=== PATIENT | female | born 1950 | race Caucasian/White ===

== ENCOUNTER 2020-10-10 13:09 | Outpatient (CLI) | payer OTHER, SELFPAY ==
--- NOTE | ~2020-10-10 | XR_ITS ---
EXAMINATION: XR lg joint inject/asp add DATE: 10/10/2020 14:38 INDICATION: Left hip primary osteoarthritis. TECHNIQUE: A time-out was performed to verify the patient's name, date of , and procedure to b e performed. The procedure including the risks, benefits, and alternatives was discussed with the pat ient. Risks discussed included bleeding and infection. The patient understood the risks and agreed to proceed. The skin overlying the left hip joint was prepped and draped in usual sterile fashion. An esthetic was administered with 1% lidocaine subcutaneously. A 22 G needle was advanced under fluoros copic guidance into the joint. Injection of 1 mL of Omnipaque 240 confirmed intra-articular position of the needle. Subsequently, injectate consisting of 5 mL 1% lidocaine and 2 mL 10 mg/mL Kenalog wa s instilled. The needle was removed and the entry site was cleaned and dressed. There were no immed iate complications. Fluoroscopy exposure time was 0.1 minutes. The total number of images was 2. FINDINGS: Real-time fluoroscopy demonstrates the needle in the left hip joint. IMPRESSION: 1. Fluoroscopy guided left hip joint injection of local anesthetic and steroid. Reviewed, dictated and finalized at location A. SHAPER
--- NOTE | ~2020-10-10 | XR_ITS ---
EXAMINATION: XR lg joint inject/asp w image DATE: 10/10/2020 14:37 INDICATION: Right hip primary osteoarthritis. TECHNIQUE: A time-out was performed to verify the patient's name, date of , and procedure to b e performed. The procedure including the risks, benefits, and alternatives was discussed with the pat ient. Risks discussed included bleeding and infection. The patient understood the risks and agreed to proceed. The skin overlying the right hip joint was prepped and draped in usual sterile fashion. A nesthetic was administered with 1% lidocaine subcutaneously. A 22 G needle was advanced under fluoro scopic guidance into the joint. Injection of 1 mL of Omnipaque 240 confirmed intra-articular positio n of the needle. Subsequently, injectate consisting of 5 mL 1% lidocaine and 2 mL 10 mg/mL Kenalog w as instilled. The needle was removed and the entry site was cleaned and dressed. There were no imme diate complications. Fluoroscopy exposure time was 0.1 minutes. The total number of images was 2. FINDINGS: Real-time fluoroscopy demonstrates the needle in the right hip joint. IMPRESSION: 1. Fluoroscopy guided right hip joint injection of local anesthetic and steroid. Reviewed, dictated and finalized at location A. TECHNICIAN IMPRESSION: 1. Fluoroscopy guided right hip joint injection of local anesthetic and steroid .
== END 2020-10-10 13:10 | disposition home or self-care (01) ==
PROVIDERS: PCP Physician Assistant; Visit Provider Orthopaedic Surgery
DX: M16.0 Bilateral primary osteoarthritis of hip (principal)
CPT/HCPCS: 20610; 77002; J3301; Q9966

== ENCOUNTER 2022-01-01 19:49 | Emergency (ER) | payer OTHER, SELFPAY ==
[2022-01-01 19:56] VITALS: BP 149/80; PULSE 86; RESP 16; TEMP 36.1; O2SAT 100
[2022-01-01 20:54] LABS: Add Urine Microscopic? YES; Appearance Urine Cloudy (Clear); Bacteria Urine Trace /hpf; Bilirubin Urine Negative (Negative); Blood Urine 2+ (Negative); Color Urine Yellow (Yellow); Glucose Urine UA Negative (Negative); Ketones Urine Negative (Negative); Leukocyte Esterase Ur 3+ LEU/UL (Negative); Mucus Urine Rare /lpf; Nitrate Urine Positive (Negative); Protein Urine Negative (Negative); Squamous Epithelial Cell Urine Occasional /hpf (Few); WBC Urine >75 /hpf
[2022-01-01] MEDS: PHENAZOPYRIDINE HCL 100 MG TABLET 200 MG PO (21:19)
[2022-01-01] MEDS: cefTRIAXone 1 GM VIAL IM (21:19)
--- NOTE | 2022-01-01 21:38 | ED.GENADULT ---
HPI - General Adult General Chief complaint: Unspecified Stated complaint: uti symptoms, concerned for infection at surgical Time Seen by Provider: 01/01/22 20:30 Source: patient Mode of arrival: ambulatory Limitations: no limitations History of Present Illness HPI narrative: This is a 71 year old female who presents for evaluation of a UTI. Patient developed dysuria and increased urinary frequency 3 days. She reports lower abdominal pain with urinary. She denies nausea, vomiting, fever, chills or hematuria. She took some left over antibiotics which helped her symptoms. She was unable to get a hold of her PCP so she came to ER for antibiotics. Patient also wants her right hip surgical wound site to be evaluated while she is here getting treatment for UTI. She had right hip replacement performed 1 month ago at [facility]. She noticed that when she turns a certain when she notices a lump just under her incision. She denies any pain, redness, drainage, fever, nausea or vomiting. She is ambulatory and she has been walking without any difficulty. She is due to follow up with her surgeon within the next week. Related Data Home Medications Medication Instructions Recorded Confirmed loratadine 10 mg capsule 10 mg PO DAILY 09/26/20 09/26/20 naproxen 500 mg tablet 500 mg PO BID 09/26/20 09/26/20 Allergies Allergy/AdvReac Type Severity Reaction Status Date / Time ether Allergy Unknown Verified 02/03/19 18:11 Review of Systems Review of Systems: All systems reviewed & are unremarkable except as noted in HPI and below Constitutional: Constitutional: Denies body ache(s), Denies chills and Denies fatigue PMFSH Past Medical History Medical History (Updated 01/02/22 @ 00:00 by Saeed Paris) Arthritis of both hips BMI 34.0-34.9,adult H/O blood clots Osteoporosis Surgical History Surgical History (Updated 01/01/22 @ 21:42 by Louisa Whitt MD) History of bilateral hip replacements History of esophageal surgery 1977 Social History Social History Smoking status: Never smoker Alcohol intake: never 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 HEAD: Normocephalic, atraumatic EYES: PERRLA and EOMI, conjunctiva clear without discharge THROAT:Mucous membranes moist, Oropharynx normal without erythema, exudate, peritonsillar swelling or fluctuance NECK: Supple, without lymphadenopathy or mass RESPIRATORY: No respiratory distress, Airway patent, Respirations non-labored, Clear to auscultation without rales, rhonchi or wheeze HEART: Regular rate and rhythm. No murmur heard. Normal peripheral pulses. ABDOMEN: Soft, nontender, nondistended, normal active bowel sounds. No masses. No rebound or guarding, No organomegaly. EXTREMITIES: No edema, normal strength with full range of motion. SKIN: Warm, dry, normal color without rash; right hip incision- intact, dry, no drainage, no redness, no tenderness; there are small areas with scab but no open areas. NEURO: Alert and oriented x3. CN 2-12 grossly intact. No focal deficits. PSYCH: Normal mood and affect. Course Reevaluation(s) Reevaluation #1: Patient will be treatment for UTI. She is ambulatory , chata abdominal exam. No cva tenderness. Wound looks good. Date: 01/01/22 Time: 21:43 Vital Signs Vital signs: Vital Signs Temperature 97 F L 01/01/22 19:56 Pulse Rate 86 01/01/22 19:56 Respiratory Rate 16 01/01/22 19:56 Blood Pressure 149/80 H 01/01/22 19:56 Pulse Oximetry 100 01/01/22 19:56 Temperature 97 F L 01/01/22 19:56 Pulse Rate 90 01/01/22 22:03 Respiratory Rate 18 01/01/22 22:03 Blood Pressure 149/80 H 01/01/22 19:56 Pulse Oximetry 98 01/01/22 22:03 Medical Decision Making Vital Signs Vital Signs: Vital
[2022-01-01 22:03] VITALS: PULSE 90; RESP 18; O2SAT 98
== END 2022-01-01 22:04 | disposition home or self-care (01) ==
PROVIDERS: Family Medicine; Emergency Provider General Practice; PCP Physician Assistant
DX: N39.0 Urinary tract infection, site not specified (principal); Z48.89 Encounter for other specified surgical aftercare; M19.90 Unspecified osteoarthritis, unspecified site
CPT/HCPCS: 81001; 87086; 87088; 96372; 99283; A9270; J0696

== ENCOUNTER 2022-03-12 18:28 | Emergency (ER) | payer OTHER, SELFPAY ==
[2022-03-12 18:30] VITALS: BP 155/69; PULSE 78; RESP 18; TEMP 36.6; O2SAT 100
--- NOTE | 2022-03-12 18:39 | ED.GENADULT ---
HPI - General Adult General Chief complaint: Unspecified Stated complaint: Multiple Complaints Time Seen by Provider: 03/12/22 18:39 History of Present Illness HPI narrative: Patient is a 71-year-old female here for evaluation of a lesion to her left inner thigh. Patient states that she was out working in the yard 2 days ago and she developed a lesion on her thigh the following day. She states the lesion is pruritic, she has attempted hydrocortisone cream, poured clorox on lesion, and has covered the area with duct tape without relief. Additionally reports swelling to her bilateral ankles for the past 3 days and some bilateral arm soreness. Patient states that 2 days ago was the first time she was out working in the yard a while and she is usually not on her feet all day. Denies changes to her urine, syncope, chest pain, fevers, chills. She did have a mild headache yesterday that resolved after taking aspirin. States that she frequently gets headaches and this was her usual tension headache. No visual changes, neck stiffness, thunderclap onset, confusion or weakness. Related Data Home Medications Medication Instructions Recorded Confirmed loratadine 10 mg capsule 10 mg PO DAILY 09/26/20 09/26/20 naproxen 500 mg tablet 500 mg PO BID 09/26/20 09/26/20 Allergies Allergy/AdvReac Type Severity Reaction Status Date / Time ether Allergy Unknown Verified 02/03/19 18:11 Review of Systems Review of Systems: Gen.: Denies fevers or chills Eyes: Denies eye pain or visual change ENT: Denies congestion Respiratory: Denies shortness of breath or cough CV: Denies chest pain or palpitations GI: Denies abdominal pain nausea, emesis or diarrhea denies burning, urgency, frequency or hematuria Musculoskeletal: Reports arm soreness. Denies back pain or muscle pain Neuro: Reports headache, resolved. 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 1 beat of horizontal nystagmus noted. HEENT: Normocephalic, atraumatic, OMM. RESPIRATORY: No respiratory distress. Clear to auscultation bilaterally with no rhonchi wheezing or rales. CARDIOVASCULAR: Regular rate and rhythm without murmurs rubs or gallops. ABDOMINAL: Soft, nontender, nondistended, no rebound or guarding MUSCULOSKELETAL: Patient has trace nonpitting edema bilaterally. No calf tenderness or tenderness to palpation along deep venous system. NEURO: Cranial nerves II through XII intact. Awake and alert. Following commands, speech normal, no focal deficits SKIN: Patient has a 1 cm circular wheal to her left inner thigh no active drainage or underlying fluctuance or induration. Similar lesion on right upper chest. Numerous varicose varicosities to bilateral lower legs. PSYCHIATRIC: Normal affect/mood Course Vital Signs Vital signs: Vital Signs Temperature 98 F 03/12/22 18:30 Pulse Rate 78 03/12/22 18:30 Respiratory Rate 18 03/12/22 18:30 Blood Pressure 155/69 H 03/12/22 18:30 Pulse Oximetry 100 03/12/22 18:30 Oxygen Delivery Room Air 03/12/22 18:30 Temperature 98 F 03/12/22 18:30 Pulse Rate 74 03/12/22 19:16 Respiratory Rate 18 03/12/22 19:16 Blood Pressure 112/57 L
[2022-03-12 19:16] VITALS: BP 112/57; PULSE 74; RESP 18; O2SAT 99
== END 2022-03-12 19:26 | disposition home or self-care (01) ==
LOC: ANHED 19:07
PROVIDERS: Emergency Provider Emergency Medicine; PCP Physician Assistant
DX: S70.362A Insect bite (nonvenomous), left thigh, initial encounter (principal); W57.XXXA Bitten or stung by nonvenomous insect and other nonvenomous arthropods, initial encounter; M19.90 Unspecified osteoarthritis, unspecified site
CPT/HCPCS: 99283

== ENCOUNTER 2022-06-30 05:54 | Emergency (ER) | payer OTHER, SELFPAY ==
[2022-06-30 06:03] VITALS: BP 160/76; PULSE 86; RESP 18; TEMP 36.6; O2SAT 99
--- NOTE | 2022-06-30 06:19 | ED.GENADULT ---
HPI - General Adult General Chief complaint: Skin/Abscess/Foreign Body Stated complaint: rash, spider bite? Time Seen by Provider: 06/30/22 06:11 History of Present Illness HPI narrative: This is a 72-year-old female presenting ED with a bug bite to her right breast. Patient states that she was raking leaves in a ditch when she has found 2 small kids that were covered in fleas. While she was trying to save them from the ditch she experienced a painful sensation in her right breast. It then became progressively more red. she did not see a bug or spider bite her. She began to become concerned because she went to bed and it was only mildly red and now has begun to spread across her right breast. Patient is concerned she was bit by a brown recluse. Related Data Home Medications Medication Instructions Recorded Confirmed loratadine 10 mg capsule 10 mg PO DAILY 09/26/20 09/26/20 naproxen 500 mg tablet 500 mg PO BID 09/26/20 09/26/20 Allergies Allergy/AdvReac Type Severity Reaction Status Date / Time ether Allergy Unknown Verified 02/03/19 18:11 Review of Systems Review of Systems: CONSTITUTIONAL: Denies night sweats. EYES: No eye pain ENT: Denies rhinorrhea CARDIOVASCULAR: Denies palpitations RESPIRATORY: Denies hemoptysis GASTROINTESTINAL: Denies hematemesis GENITOURINARY: Denies hematuria. SKIN: Denies rash MUSCULOSKELETAL: Denies myalgia. NEUROLOGIC: Denies weakness. 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 Head atraumatic. EYES: PERRLA/EOMI, NOSE: Normal no drainage NECK: Supple, Trachea midline RESPIRATORY: CTAB, No increased work of breathing. CARDIOVASCULAR: S1S2 appreciated ABDOMINAL: Soft, nontender, nondistended, MUSCULOSKELETAl: No obvious deformities NEURO: Alert. Moving 4/4 extremities SKIN:: Patient has a small area [id number] area of erythema underneath her right breast. there is no induration or areas of fluctuance. There is also some mild erythema on top of her right breast PSYCHIATRIC: Normal affect Course Vital Signs Vital signs: Vital Signs Temperature 97.8 F 06/30/22 06:03 Pulse Rate 86 06/30/22 06:03 Respiratory Rate 18 06/30/22 06:03 Blood Pressure 160/76 H 06/30/22 06:03 Pulse Oximetry 99 06/30/22 06:03 Oxygen Delivery Room Air 06/30/22 06:03 Temperature 97.8 F 06/30/22 06:03 Pulse Rate 86 06/30/22 06:03 Respiratory Rate 18 06/30/22 06:03 Blood Pressure 160/76 H 06/30/22 06:03 Pulse Oximetry 99 06/30/22 06:03 Oxygen Delivery Room Air 06/30/22 06:03 Medical Decision Making [facility] Narrative Medical decision making narrative: this 72-year-old female presenting ED after she had a bug bite. The bug bite is mild but there is some surrounding erythema from the bite. Patient is requesting antibiotics as she is very concerned about infection. I spoke with her at length about how it is unlikely that antibiotics will help the bug bite. However she is adamant that she needs a course of antibiotics. Patient will be treated with a course of Keflex in case this is early infectious process. She has been warned this will likely result in diarrhea. She has been instructed follow-up with her primary care physician. Vital Signs Vital Signs: Vital Signs Temperature 97.8 F 06/30/22 06:03 Pulse Rate 86 06/30/22 06:
== END 2022-06-30 06:39 | disposition home or self-care (01) ==
PROVIDERS: Emergency Provider Emergency Medicine; PCP Physician Assistant
DX: S20.161A Insect bite (nonvenomous) of breast, right breast, initial encounter (principal); M81.0 Age-related osteoporosis without current pathological fracture; M16.0 Bilateral primary osteoarthritis of hip; Z96.643 Presence of artificial hip joint, bilateral; W57.XXXA Bitten or stung by nonvenomous insect and other nonvenomous arthropods, initial encounter
CPT/HCPCS: 99283

== ENCOUNTER 2022-08-03 16:32 | Emergency (ER) | payer OTHER, SELFPAY ==
[2022-08-03 16:34] VITALS: BP 151/95; PULSE 88; RESP 18; TEMP 36.4; O2SAT 97
--- NOTE | 2022-08-03 18:34 | PC.NURSE ---
Pt to the intake desk and states that she is going to leave. she states her wound is much better and she will check in with her dr tomorrow. pt ambulated to the exit with no difficulty
== END 2022-08-03 19:30 | disposition left against medical advice (07) ==
PROVIDERS: PCP Physician Assistant
DX: S09.93XA Unspecified injury of face, initial encounter (principal)
CPT/HCPCS: 99199

== ENCOUNTER 2023-10-03 12:44 | Emergency (ER) | payer OTHER, SELFPAY ==
[2023-10-03 13:40] VITALS: BP 138/87; PULSE 71; RESP 18; TEMP 36.8; O2SAT 97
--- NOTE | 2023-10-03 14:22 | ED.URI ---
HPI - URI/Sore Throat General Chief Complaint: Upper Respiratory Infection Stated Complaint: Cough/Weakness Time Seen by Provider: 10/03/23 14:19 Source: patient and RN notes reviewed Mode of arrival: ambulatory Limitations: no limitations History of Present Illness HPI Narrative: 73-year-old female presents with concern for 2 week history of sinus congestion, sinus headache and pressure, cough, chest congestion. Reports [id number] medications are not helping. She reports chills and body aches MD elicited complaint: cough and nasal congestion Related Data Home Medications Medication Instructions Recorded Confirmed budesonide-formoterol HFA 160 inhalation 10/03/23 mcg-4.5 mcg/actuation aerosol inhaler (Symbicort) clonazepam 0.5 mg tablet mg 10/03/23 gabapentin 100 mg capsule mg 10/03/23 tramadol 50 mg tablet mg 10/03/23 Allergies Allergy/AdvReac Type Severity Reaction Status Date / Time ether Allergy Unknown Other Verified 10/03/23 13:13 Review of Systems Review of Systems: CONSTITUTIONAL: Denies malaise, chills, sweats, or fever. EYES: Denies visual changes, redness, or discharge. ENT: Reports rhinorrhea, congestion, sinus pain CARDIOVASCULAR: Denies chest pain, palpitations, or edema. RESPIRATORY: Reports cough. Denies dyspnea. GASTROINTESTINAL: Denies abdominal pain, nausea, vomiting, diarrhea SKIN: Denies rash or itching. MUSCULOSKELETAL: Denies myalgia. NEUROLOGIC: Denies headache. 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 There is no relevant family history pertinent to the presenting complaint Exam Narrative: GENERAL: Well-appearing, well-nourished, and in no acute distress. HEAD: Normocephalic EYES: PERRLA, conjunctivae clear ENT: Nares clear, turbinates edematous and erythematous, clear discharge. Mucous membranes moist. TM pearly lowery with dull light reflex bilaterally; no tragal tenderness. Oropharynx not erythematous without lesions. Tonsils not enlarged and without exudate, no drooling, no hoarseness, no trismus, uvula midline. NECK: Supple. No lymphadenopathy CHEST: Clear to auscultation, breath sounds equal. No wheezing, rhonchi, rales, or stridor. No respiratory distress, speaks in full sentences. HEART: Regular rate and rhythm. No murmur heard. SKIN: Warm, dry, no rash. NEURO: Alert and oriented x3. PSYCH: Normal mood and affect Course Course Emergency Course: Patient is aware of diagnosis, understands and agrees to treatment plan. Anticipatory guidance given. Patient agrees to follow-up as directed and is aware of reasons to seek care at the emergency department. Portions of this record may have been created with voice recognition software Level of Care: Express Care Visit Vital Signs Vital signs: Vital Signs Temperature 98.2 F 10/03/23 13:40 Pulse Rate 71 10/03/23 13:40 Respiratory Rate 18 10/03/23 13:40 Blood Pressure 138/87 10/03/23 13:40 Pulse Oximetry 97 10/03/23 13:40 Oxygen Delivery Room Air 10/03/23 13:40 Temperature 98.2 F 10/03/23 13:40 Pulse Rate 71 10/03/23 13:40 Respiratory Rate 18 10/03/23 13:40 Blood Pressure 138/87 10/03/23 13:40
== END 2023-10-03 14:38 | disposition home or self-care (01) ==
PROVIDERS: Emergency Provider Nurse Practitioner; PCP Internal Medicine Gastroenterology
DX: J32.9 Chronic sinusitis, unspecified (principal); J40 Bronchitis, not specified as acute or chronic; M16.0 Bilateral primary osteoarthritis of hip; M81.0 Age-related osteoporosis without current pathological fracture; Z96.643 Presence of artificial hip joint, bilateral
CPT/HCPCS: 87081; 87880; 99213; G0463

== ENCOUNTER 2024-02-27 18:47 | Emergency (ER) | payer OTHER, SELFPAY ==
[2024-02-27 19:03] VITALS: BP 133/63; PULSE 74; RESP 16; TEMP 37.1; O2SAT 99
--- NOTE | 2024-02-27 19:46 | ED.GENADULT ---
HPI - General Adult General Chief complaint: Skin/Abscess/Foreign Body Stated complaint: rash on body Source: patient Mode of arrival: ambulatory Limitations: no limitations History of Present Illness HPI narrative: Patient presents for evaluation of a pruritic rash to the right side of her chest. Symptom onset yesterday after being exposed to poison tri. She has had similar allergic response to poison tri in the past. She applied calamine lotion but itching persists. She is not taking any medications for her symptoms. She has tolerated steroids well in the past. Related Data Home Medications Medication Instructions Recorded Confirmed budesonide-formoterol HFA 160 See Rx Instructions .Route .COMPLEX 10/03/23 02/27/24 mcg-4.5 mcg/actuation aerosol inhaler (Symbicort) clonazepam 0.5 mg tablet 0.5 mg PO DAILY 10/03/23 02/27/24 gabapentin 100 mg capsule 100 mg PO DAILY 10/03/23 02/27/24 tramadol 50 mg tablet See Rx Instructions .Route .COMPLEX 10/03/23 02/27/24 Allergies Allergy/AdvReac Type Severity Reaction Status Date / Time ether Allergy Unknown Unknown Verified 02/27/24 18:58 Review of Systems Review of Systems: CONSTITUTIONAL: Denies fever, chills, or sweats. EYES: Denies visual changes, redness, or discharge. ENT: Denies rhinorrhea, congestion, sore throat, or otalgia. CARDIOVASCULAR: Denies chest pain, palpitations, or edema. RESPIRATORY: Denies cough or dyspnea. GASTROINTESTINAL: Denies abdominal pain, nausea, vomiting, or diarrhea. GENITOURINARY: Denies dysuria or hematuria. SKIN: reports pruritic rash to the right side of her chest. MUSCULOSKELETAL: Denies back pain, joint pain, or myalgia. NEUROLOGIC: Denies headache, numbness, dizziness, or weakness. PSYCHIATRIC: Denies anxiety or depression. 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 HEAD: Normocephalic, atraumatic. EYES: PERRLA and EOMI. ENT: Nares clear, no rhinorrhea or epistaxis. Mucous membranes moist. Oropharynx without tonsillar hypertrophy exudate or other lesions. Bilateral TMs pearly lowery nonbulging NECK: Supple. No adenopathy or masses. No carotid bruits or JVD CHEST: Clear to auscultation. No respiratory distress. No wheezes rales or rhonchi HEART: Regular rate and rhythm. No murmur heard. Normal peripheral pulses. ABDOMEN: Soft, nontender, nondistended, normal active bowel sounds. EXTREMITIES: Normal range of motion. No edema. SKIN: there is calamine lotion smear to the right side of chest. There is some mild areas of erythema beneath the calamine, of which a thick layer has been applied NEURO: No focal deficits. Alert and oriented x3. PSYCH: Normal mood and affect. Course Course Emergency Course: this is a 73-year-old female who presented for evaluation of her pruritic rash consistent with previous bouts of poison tri. discharge with prednisone. Increase hydration. [id number] agents for symptom management. Follow with primary provider. Go to the ER worsening symptoms. Patient in agreement with plan of care. Level of Care: Express Care Visit Vital Signs Vital si
== END 2024-02-27 19:33 | disposition home or self-care (01) ==
PROVIDERS: Emergency Provider Nurse Practitioner; PCP Internal Medicine Gastroenterology
DX: L23.7 Allergic contact dermatitis due to plants, except food (principal); M16.0 Bilateral primary osteoarthritis of hip; M81.0 Age-related osteoporosis without current pathological fracture; Z86.2 Personal history of diseases of the blood and blood-forming organs and certain disorders involving the immune mechanism; Z96.643 Presence of artificial hip joint, bilateral
CPT/HCPCS: 99213; G0463

== ENCOUNTER 2024-05-15 13:51 | Emergency (ER) | payer OTHER, SELFPAY ==
[2024-05-15 14:02] VITALS: BP 142/58; PULSE 67; RESP 20; TEMP 36.8; O2SAT 100
--- NOTE | 2024-05-15 14:25 | ED.FEMALEGU ---
HPI - Female Genitourinary General Chief complaint: Urogenital-Female Stated complaint: urinary issue Time Seen by Provider: 05/15/24 14:25 Source: patient Mode of arrival: ambulatory Limitations: no limitations History of Present Illness HPI Narrative: 74-year-old female presents with complaint of urinary frequency, urgency, dysuria, suprapubic pressure for 2 days. Dysuria worse today. Denies nausea vomiting. Reports intermittent chills. All systems reviewed and negative except as noted above. Related Data Home Medications Medication Instructions Recorded Confirmed budesonide-formoterol HFA 160 See Rx Instructions .Route .COMPLEX 10/03/23 05/15/24 mcg-4.5 mcg/actuation aerosol inhaler (Symbicort) clonazepam 0.5 mg tablet 0.5 mg PO DAILY 10/03/23 05/15/24 gabapentin 100 mg capsule 100 mg PO DAILY 10/03/23 05/15/24 tramadol 50 mg tablet See Rx Instructions .Route .COMPLEX 10/03/23 05/15/24 Allergies Allergy/AdvReac Type Severity Reaction Status Date / Time ether Allergy Unknown Unknown Verified 05/15/24 14:09 Review of Systems Review of Systems: CONSTITUTIONAL: Denies fever, chills, or sweats. EYES: Denies visual changes, redness, or discharge. ENT: Denies rhinorrhea, congestion, sore throat, or otalgia. CARDIOVASCULAR: Denies chest pain, palpitations, or edema. RESPIRATORY: Denies cough or dyspnea. GASTROINTESTINAL: Denies abdominal pain, nausea, vomiting, or diarrhea. GENITOURINARY: Reports dysuria, frequency, urgency. Denies hematuria. SKIN: Denies rash or itching. MUSCULOSKELETAL: Denies back pain, joint pain, or myalgia. NEUROLOGIC: Denies headache, numbness, or weakness. PSYCHIATRIC: Denies anxiety or depression. All other systems reviewed are negative, except as documented in HPI. 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 There is no relevant family history pertinent to the presenting complaint. Exam Narrative: GENERAL: This is a well-nourished, well-developed patient, in no apparent distress. HEAD: normocephalic, atraumatic. EYES: PERRL. Sclera clear/white. Vision is grossly intact. EARS: External ears normal NOSE: External nose normal NECK: Neck supple, non-tender without lymphadenopathy, masses or thyromegaly. CARDIOVASCULAR: Regular rate and rhythm without murmurs, gallops, or rubs. RESPIRATORY: Clear to auscultation. Breath sounds equal bilaterally. No wheezes, rales, or rhonchi. SKIN: warm, Dry, intact with no suspicious lesions or rash, good texture and turgor. NEURO: awake, alert, and oriented to person, place and time. There were no obvious focal neurologic abnormalities. EXTREMITIES: No joint tenderness, effusion, or edema noted. Course Course Level of Care: Express Care Visit Vital Signs Vital signs: Vital Signs Temperature 36.8 C 05/15/24 14:02 Pulse Rate 67 05/15/24 14:02 Respiratory Rate 20 05/15/24 14:02 Blood Pressure 142/58 H 05/15/24 14:02 Pulse Oximetry 100 05/15/24 14:02 Oxygen Delivery Room Air 05/15/24 14:02 Temperature 36.8 C 05/15/24 14:02 Pulse Rate 67
[2024-05-15 14:26] LABS: EDUAAPPEAR Cloudy; EDUABILI Negative; EDUABLOOD 1+; EDUACOLOR1 Yellow; EDUAGLUCOSE Negative; EDUAKETONE Negative; EDUALEUKO 1+; EDUANITRATE Positive; EDUAPROTEIN 1+; EDUASPGRAVITY 1.025
== END 2024-05-15 14:35 | disposition home or self-care (01) ==
PROVIDERS: Emergency Provider Nurse Practitioner Family; PCP Internal Medicine Gastroenterology
DX: N39.0 Urinary tract infection, site not specified (principal); M16.0 Bilateral primary osteoarthritis of hip; M81.0 Age-related osteoporosis without current pathological fracture; Z86.2 Personal history of diseases of the blood and blood-forming organs and certain disorders involving the immune mechanism
CPT/HCPCS: 81003; 87077; 87086; 87088; 87186; 99213; G0463

== ENCOUNTER 2024-05-26 18:38 | Emergency (ER) | payer OTHER, SELFPAY ==
--- NOTE | ~2024-05-26 | XR_ITS ---
EXAMINATION: XR knee RT min 4V DATE: 05/26/2024 21:35 INDICATION: Right knee injury and pain. TECHNIQUE: 4 views of right knee were obtained. COMPARISON: None. FINDINGS: Bone alignment is normal. No fracture. There is moderate osteoarthritis of medial and her lofemoral compartments and mild osteoarthritis of lateral compartment. There is a small knee joint ef fusion. IMPRESSION: 1. Moderate right knee osteoarthritis. 2. Small right knee joint effusion. Reviewed, dictated and finalized at location A.
[2024-05-26 18:42] VITALS: BP 158/68; PULSE 67; RESP 18; TEMP 36.6; O2SAT 100
--- NOTE | 2024-05-26 21:27 | ED.GENADULT ---
HPI - General Adult General Chief complaint: Extremity Injury, Lower Stated complaint: right knee pain Time Seen by Provider: 05/26/24 21:21 History of Present Illness HPI narrative: Patient is a 74-year-old female who presents to the emergency department this evening complaining of right knee pain. Patient states that approximately 3 days ago she was moving wood in the [place] and was pulling a lot of heavy things and believes that she may have done something to her right knee because today she was sitting in the chair and suddenly felt a popping sensation in her right knee. Patient does have a small knee effusion. States that she has placed a knee brace on her right knee to help with support while walking and admits that that has helped her symptoms. Patient is able to ambulate and put weight on her right lower extremity. Denies any additional injuries. Related Data Home Medications Medication Instructions Recorded Confirmed budesonide-formoterol HFA 160 See Rx Instructions .Route .COMPLEX 10/03/23 05/15/24 mcg-4.5 mcg/actuation aerosol inhaler (Symbicort) clonazepam 0.5 mg tablet 0.5 mg PO DAILY 10/03/23 05/15/24 gabapentin 100 mg capsule 100 mg PO DAILY 10/03/23 05/15/24 tramadol 50 mg tablet See Rx Instructions .Route .COMPLEX 10/03/23 05/15/24 Allergies Allergy/AdvReac Type Severity Reaction Status Date / Time ether Allergy Unknown Unknown Verified 05/26/24 18:39 Review of Systems Review of Systems: All systems are reviewed and are negative unless stated otherwise in the HPI. 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 HEENT: PERRL, no rhinorrhea, no post nasal drip, oropharynx clear. Cardiovascular: Regular rate and rhythm, no murmurs, rubs or gallops, no peripheral edema. Respiratory: Clear to auscultation bilaterally, no tachypnea, no wheezing, no rhonchi, no rubs, no respiratory distress. Abdomen: Soft, nontender, nondistended, no rebound, no guarding, no peritoneal signs. Musculoskeletal: Right knee moderate joint effusion noted, no ecchymosis or wheezing, intact right knee flexion and extension. Skin: No rashes or petechia, no signs of infection. Neurological: Alert and oriented to person, place, and time. Follows all commands. No focal deficits, speech is clear and fluent. Course Vital Signs Vital signs: Vital Signs Temperature 97.9 F 05/26/24 18:42 Pulse Rate 67 05/26/24 18:42 Respiratory Rate 18 05/26/24 18:42 Blood Pressure 158/68 H 05/26/24 18:42 Pulse Oximetry 100 05/26/24 18:42 Oxygen Delivery Room Air 05/26/24 18:42 Temperature 97.9 F 05/26/24 18:42 Pulse Rate 67 05/26/24 18:42 Respiratory Rate 18 05/26/24 18:42 Blood Pressure 158/68 H 05/26/24 18:42 Pulse Oximetry 100 05/26/24 18:42 Oxygen Delivery Room Air 05/26/24 18:42 Medical Decision Making MDM Narrative Medical decision making narrative: The patient was evaluated by myself in the emergency department. History is obtained from patient who is an independent historian and physical exam was performed. External medical records were reviewed at this time. Imaging studies
[2024-05-26 22:23] VITALS: BP 149/72; PULSE 68; RESP 16; O2SAT 98
== END 2024-05-26 22:24 | disposition home or self-care (01) ==
LOC: ANHED 21:56
PROVIDERS: Emergency Provider Emergency Medicine; PCP Internal Medicine Gastroenterology
DX: M23.91 Unspecified internal derangement of right knee (principal); S89.91XA Unspecified injury of right lower leg, initial encounter; M16.0 Bilateral primary osteoarthritis of hip; M81.0 Age-related osteoporosis without current pathological fracture; Z96.643 Presence of artificial hip joint, bilateral; M17.11 Unilateral primary osteoarthritis, right knee; X50.0XXA Overexertion from strenuous movement or load, initial encounter
CPT/HCPCS: 73564; 99283

== ENCOUNTER 2024-11-04 16:43 | Emergency (ER) | payer OTHER, SELFPAY ==
[2024-11-04 16:53] VITALS: BP 91/64; PULSE 78; RESP 16; TEMP 37.3; O2SAT 98
--- NOTE | 2024-11-04 17:49 | ED.URI ---
HPI - URI/Sore Throat General Chief Complaint: Upper Respiratory Infection Stated Complaint: runny nose,dizzy,sore throat,JENSEN Time Seen by Provider: 11/04/24 18:15 Source: patient, RN notes reviewed and old records reviewed Mode of arrival: ambulatory Limitations: no limitations History of Present Illness HPI Narrative: Patient presents with complaints of flu-like symptoms for 3 days. She has been using multiple [id number] remedies with moderate relief. She has also been taking promethazine for her cough. She states that she does not feel this works very well. She is not in any distress. She denies any injury or trauma. No other concerns or complaints today Related Data Home Medications ?Medication ?Instructions ?Recorded ?Confirmed ?Last Taken ?Type budesonide-formoterol HFA 160 See Rx Instructions .Route .COMPLEX 10/03/23 11/04/24 Unknown History mcg-4.5 mcg/actuation aerosol inhaler (Symbicort) clonazepam 0.5 mg tablet 0.5 mg PO DAILY 10/03/23 11/04/24 Unknown History gabapentin 100 mg capsule 100 mg PO DAILY 10/03/23 11/04/24 Unknown History tramadol 50 mg tablet See Rx Instructions .Route .COMPLEX 10/03/23 11/04/24 Unknown History ergocalciferol (vitamin D2) 1,250 1,250 mcg PO WEEKLY 11/04/24 11/04/24 Unknown History mcg (50,000 unit) capsule promethazine-DM 6.25 mg-15 mg/5 mL 5 ml PO TID PRN cough 11/04/24 11/04/24 Unknown History oral syrup Allergies Allergy/AdvReac Type Severity Reaction Status Date / Time ether Allergy Unknown Unknown Verified 11/04/24 17:04 Review of Systems Review of Systems: All systems reviewed & are unremarkable except as noted in HPI and below Constitutional: Constitutional: Reports no additional constitutional complaints, Reports body ache(s), Reports fever(s) and Reports lethargy ENT: Reports system reviewed and no additional complaints, except as documented, Reports nasal congestion and Reports nasal discharge Cardiovascular: Cardiovascular: Reports no additional cardiovascular complaints Respiratory: Respiratory: Reports no additional respiratory complaints and Reports cough Gastrointestinal: Gastrointestinal: Reports no additional gastrointestinal complaints [facility] Past Medical History Medical History (Updated 11/04/24 @ 18:19 by Meme Denzel Roman APRN) Cataract Anxiety Arthritis of both hips Osteoporosis H/O blood clots BMI 34.0-34.9,adult Surgical History Surgical History History of bilateral hip replacements History of esophageal surgery 1977 Family History Family History (Updated 06/08/24 @ 14:05 by Inez Flores) Mother Unknown family medical history Unknown Neuropathy Arthritis Social History Social History Smoking status: Never smoker Alcohol intake: never Substance use: current Substance use type: marijuana Last use: Marijuana for pain occasional use Living arrangements: with family Occupation/Education: occupation 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 There is no relevant family history pertinent to the patient complaint. Exam Const: General: cooperative, no acute distress, alert and awake Orientation/consciousness: oriented to person, oriented to place and oriented to time HENMT: Head: normal to inspection Ears: TM's normal bilaterally Mouth: Yes moist mucous membranes Resp: Effort & Inspection: normal respiratory effort and able to speak in complete sentences Auscultation: clear to auscultation bilaterally, no crackles, no rales, no rhonchi and no wheezes Cardio: Palpation: normal PMI Rate: regular rate Rhythm: regular rhythm Heart sounds: S1 normal heart sound present and S2 normal heart sound present Neuro: General: oriented to person, oriented to place and oriented to time Cranial nerves: Yes CN's II-XII intact bilaterally Psych: Appearance: grossly normal Thought process: Normal thought process present Insight: Good insight present (Psych) Judgement: Good judgement present (Psych) Course Course Level of Care: Express Care Visit Vital Signs Vital signs: Vital Signs Temperature 99.2 F 11/04/24 16:53 Pulse Rate 78 11/04/24 16:53 Respiratory Rate 16 11/04/24 16:53 Blood Pressure 91/64 L 11/04/24 16:53 Pulse Oximetry 98 11/04/24 16:53 Oxygen Delivery Room Air 11/04/24 16:53 Temperature 99.2 F 11/04/24 16:53 Pulse Rate 78 11/04/24 16:53 Respiratory Rate 16 11/04/24 16:53 Blood Pressure 91/64 L 11/04/24 16:53 Pulse Oximetry 98 11/04/24 16:53 Oxygen Delivery Room Air 11/04/24 16:53 Reviewed MDM - URI/Sore Throat MDM Narrative Medical decision making narrative: Patient positive for influenza. Supportive care measures discussed. She is nontoxic appearing, stable for discharge home. Discharge instructions reviewed with patient, as well as provided in writing per nursing staff. The instructions also include specific and strict return/GO TO THE ER as well as f/u information. All questions have been answered, and the patient deny any further questions with discharge and discharge plan. Some parts of this dictation were generated by voice recognition software and may contain typographical and/or grammatical inaccuracies. Differential Diagnosis Differential diagnosis: Likely upper respiratory infection, otitis media, viral infection, influenza and pharyngitis Medical Records Attestation: I reviewed the patient's medical records. Lab Data Attestation: I reviewed the patient's lab results. Discharge Plan Discharge Clinical Impression: Influenza Patient Disposition: Home, Self-Care Condition: Stable Instructions: Antibiotic Form, Influenza (ED) Additional Instructions: Continue to treat symptoms. Follow-up with primary care provider. Emergency department for new or worse symptoms Patient Language: Greek Prescriptions: No Action ergocalciferol (vitamin D2) 1,250 mcg (50,000 unit) capsule 1,250 mcg PO WEEKLY promethazine-DM 6.25-15 mg/5 mL syrup 5 ml PO TID PRN (Reason: cough) clonazepam 0.5 mg tablet 0.5 mg PO DAILY tramadol 50 mg tablet See Rx Instructions .ROUTE .COMPLEX Rx Instructions: Rx gabapentin 100 mg capsule 100 mg PO DAILY budesonide-formoterol [Symbicort] 160-4.5 mcg/actuation HFA aerosol inhaler See Rx Instructions .ROUTE .COMPLEX Rx Instructions: Rx Follow-up/Referrals: Mauricio,Vicky Kenny MD [Primary Care Provider] - 2 Weeks Time of Disposition: 18:19
[2024-11-04 18:21] LABS: EDCOVIDSCREEN Negative (Negative); EDINFLUASCREEN Positive (Negative); EDINFLUBSCREEN Negative (Negative)
== END 2024-11-04 18:28 | disposition home or self-care (01) ==
PROVIDERS: Emergency Provider Nurse Practitioner Family; PCP Internal Medicine Gastroenterology
DX: J10.1 Influenza due to other identified influenza virus with other respiratory manifestations (principal); Z20.822 Contact with and (suspected) exposure to COVID-19; F12.90 Cannabis use, unspecified, uncomplicated; M16.0 Bilateral primary osteoarthritis of hip; M81.0 Age-related osteoporosis without current pathological fracture; F41.9 Anxiety disorder, unspecified; Z86.2 Personal history of diseases of the blood and blood-forming organs and certain disorders involving the immune mechanism; Z96.643 Presence of artificial hip joint, bilateral
CPT/HCPCS: 87426; 87804; 99213; G0463

== ENCOUNTER 2024-11-21 09:12 | Emergency (ER) | payer OTHER, SELFPAY ==
--- NOTE | 2024-11-21 09:17 | ED_ITS ---
HPI - Female Genitourinary General Chief complaint: Urogenital-Female Stated complaint: UTI Time Seen by Provider: 11/21/24 10:00 Source: patient, RN notes reviewed and old records reviewed Mode of arrival: ambulatory Limitations: no limitations Related Data Home Medications ?Medication ?Instructions ?Recorded ?Confirmed ?Last Taken ?Type budesonide-formoterol HFA 160 See Rx Instructions .Route .COMPLEX 10/03/23 11/04/24 Unknown History mcg-4.5 mcg/actuation aerosol inhaler (Symbicort) clonazepam 0.5 mg tablet 0.5 mg PO DAILY 10/03/23 11/04/24 Unknown History gabapentin 100 mg capsule 100 mg PO DAILY 10/03/23 11/04/24 Unknown History tramadol 50 mg tablet See Rx Instructions .Route .COMPLEX 10/03/23 11/04/24 Unknown History ergocalciferol (vitamin D2) 1,250 1,250 mcg PO WEEKLY 11/04/24 11/04/24 Unknown History mcg (50,000 unit) capsule cetirizine 10 mg tablet mg 11/21/24 Unknown History ondansetron 4 mg disintegrating mg 11/21/24 Unknown History tablet Allergies Allergy/AdvReac Type Severity Reaction Status Date / Time ether Allergy Unknown Unknown Verified 11/21/24 09:23 Review of Systems Review of Systems: All systems reviewed & are unremarkable except as noted in HPI and below Constitutional: Constitutional: Reports no additional constitutional complaints ENT: Reports system reviewed and no additional complaints, except as documented Cardiovascular: Cardiovascular: Reports no additional cardiovascular complaints Respiratory: Respiratory: Reports no additional respiratory complaints Gastrointestinal: Gastrointestinal: Reports no additional gastrointestinal complaints [facility] Past Medical History Medical History (Updated 11/21/24 @ 10:13 by Meme Roman APRN) Cataract Anxiety Arthritis of both hips Osteoporosis H/O blood clots BMI 34.0-34.9,adult Surgical History Surgical History History of bilateral hip replacements History of esophageal surgery 1978 Family History Family History (Updated 06/08/24 @ 14:05 by Inez Flores) Mother Unknown family medical history Unknown Neuropathy Arthritis Social History Social History Smoking status: Never smoker Alcohol intake: never Substance use: current Substance use type: marijuana Last use: Marijuana for pain occasional use Living arrangements: with family Occupation/Education: occupation 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 There is no relevant family history pertinent to the patient complaint. Exam Const: General: cooperative, no acute distress, alert and awake Orientation/consciousness: oriented to person, oriented to place and oriented to time HENMT: Head: normal to inspection Resp: Effort & Inspection: normal respiratory effort and able to speak in complete sentences Auscultation: clear to auscultation bilaterally, no crackles, no rales, no rhonchi and no wheezes Cardio: Palpation: normal PMI Rate: regular rate Rhythm: regular rhythm Heart sounds: S1 normal heart sound present and S2 normal heart sound present Neuro: General: oriented to person, oriented to place and oriented to time Cranial nerves: Yes CN's II-XII intact bilaterally Psych: Appearance: grossly normal Thought process: Normal thought process present Insight: Good insight present (Psych) Judgement: Good judgement present (Psych) Course Course Level of Care: Express Care Visit Vital Signs Vital signs: Reviewed Discharge Plan Discharge Clinical Impression: Urinary tract infection Qualifiers: Urinary tract infection type: site unspecified Hematuria presence: with hematuria Qualified Code(s): N39.0 - Urinary tract infection, site not specified Patient Disposition: Home, Self-Care Condition: Stable Instructions: Antibiotic Form, Urinary Tract Infection in Women (ED) Additional Instructions: Take medications as prescribed. Follow with primary care provider. Emergency department for new or worse symptoms. Patient Language: Bulgarian Prescriptions: New nitrofurantoin monohyd/m-cryst [Macrobid] 100 mg capsule 100 mg PO Q12H 5 Days Qty: 10 0RF Rx Instructions: must administer with a meal/food No Action ergocalciferol (vitamin D2) 1,250 mcg (50,000 unit) capsule 1,250 mcg PO WEEKLY clonazepam 0.5 mg tablet 0.5 mg PO DAILY tramadol 50 mg tablet See Rx Instructions .ROUTE .COMPLEX Rx Instructions: Rx gabapentin 100 mg capsule 100 mg PO DAILY budesonide-formoterol [Symbicort] 160-4.5 mcg/actuation HFA aerosol inhaler See Rx Instructions .ROUTE .COMPLEX Rx Instructions: Rx cetirizine 10 mg tablet ondansetron 4 mg tablet,disintegrating Follow-up/Referrals: Armando,Vicky Kenny MD [Primary Care Provider] - 2 Weeks (uti) Time of Disposition: 10:13
[2024-11-21 09:30] VITALS: BP 133/67; PULSE 78; RESP 20; TEMP 37.2; O2SAT 100
[2024-11-21 10:10] LABS: EDUAAPPEAR Purulent; EDUABILI 1+ (Negative); EDUABLOOD 3+ (Negative); EDUACOLOR1 Amber; EDUAGLUCOSE Trace (Negative); EDUAKETONE Negative (Negative); EDUALEUKO Negative (Negative); EDUANITRATE Positive (Negative); EDUAPH 7.5; EDUAPROTEIN 2+ (Negative); EDUASPGRAVITY 1.025; EDUAUROBILI 0.2
--- NOTE | 2024-11-29 09:32 | ED.FEMALEGU ---
HPI - Female Genitourinary General Chief complaint: Urogenital-Female Stated complaint: UTI Time Seen by Provider: 11/21/24 10:00 Source: patient, RN notes reviewed and old records reviewed Mode of arrival: ambulatory Limitations: no limitations History of Present Illness HPI Narrative: patient presents with complaints of urinary frequency and burning that began yesterday. She denies any fever, chills, sweats. She denies any flank pain. She denies karie hematuria. She does report foul urine odor. She is not in any obvious distress. She denies any injury or trauma Related Data Home Medications ?Medication ?Instructions ?Recorded ?Confirmed ?Last Taken ?Type budesonide-formoterol HFA 160 See Rx Instructions .Route .COMPLEX 10/03/23 11/04/24 Unknown History mcg-4.5 mcg/actuation aerosol inhaler (Symbicort) clonazepam 0.5 mg tablet 0.5 mg PO DAILY 10/03/23 11/04/24 Unknown History gabapentin 100 mg capsule 100 mg PO DAILY 10/03/23 11/04/24 Unknown History tramadol 50 mg tablet See Rx Instructions .Route .COMPLEX 10/03/23 11/04/24 Unknown History ergocalciferol (vitamin D2) 1,250 1,250 mcg PO WEEKLY 11/04/24 11/04/24 Unknown History mcg (50,000 unit) capsule cetirizine 10 mg tablet mg 11/21/24 Unknown History ondansetron 4 mg disintegrating mg 11/21/24 Unknown History tablet Allergies Allergy/AdvReac Type Severity Reaction Status Date / Time ether Allergy Unknown Unknown Verified 11/21/24 09:23 Review of Systems Review of Systems: All systems reviewed & are unremarkable except as noted in HPI and below Constitutional: Constitutional: Reports no additional constitutional complaints ENT: Reports system reviewed and no additional complaints, except as documented Cardiovascular: Cardiovascular: Reports no additional cardiovascular complaints Respiratory: Respiratory: Reports no additional respiratory complaints Gastrointestinal: Gastrointestinal: Reports no additional gastrointestinal complaints Genitourinary: Genitourinary: Reports as per HPI, Reports nocturia and Reports dysuria [facility] Past Medical History Medical History (Updated 11/22/24 @ 00:01 by Saeed Paris) Cataract Anxiety Arthritis of both hips Osteoporosis H/O blood clots BMI 34.0-34.9,adult Surgical History Surgical History History of bilateral hip replacements History of esophageal surgery 1977 Family History Family History (Updated 06/08/24 @ 14:05 by Inez Flores) Mother Unknown family medical history Unknown Neuropathy Arthritis Social History Social History Smoking status: Never smoker Alcohol intake: never Substance use: current Substance use type: marijuana Last use: Marijuana for pain occasional use Living arrangements: with family 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 There is no relevant family history pertinent to the patient complaint. Exam Const: General: cooperative, no acute distress, alert and awake Orientation/consciousness: oriented to person, oriented to place and oriented to time HENMT: Head: normal to inspection Resp: Effort & Inspection: normal respiratory effort and able to speak in complete sentences Auscultation: clear to auscultation bilaterally, no crackles, no rales, no rhonchi and no wheezes Cardio: Palpation: normal PMI Rate: regular rate Rhythm: regular rhythm Heart sounds: S1 normal heart sound present and S2 normal heart sound present : General: Yes bladder normal to palpation and Yes no CVA tenderness Neuro: General: oriented to person, oriented to place and oriented to time Cranial nerves: Yes CN's II-XII intact bilaterally Psych: Appearance: grossly normal Thought process: Normal thought process present Insight: Good insight present (Psych) Judgement: Good judgement present (Psych) Course Course Level of Care: Express Care Visit Vital Signs Vital signs: Vital Signs Temperature 99 F 11/21/24 09:30 Pulse Rate 78 11/21/24 09:30 Respiratory Rate 20 11/21/24 09:30 Blood Pressure 133/67 11/21/24 09:30 Pulse Oximetry 100 11/21/24 09:30 Oxygen Delivery Room Air 11/21/24 09:30 Temperature 99 F 11/21/24 09:30 Pulse Rate 78 11/21/24 09:30 Respiratory Rate 20 11/21/24 09:30 Blood Pressure 133/67 11/21/24 09:30 Pulse Oximetry 100 11/21/24 09:30 Oxygen Delivery Room Air 11/21/24 09:30 Reviewed MDM - Female Genitourinary MDM Narrative Medical decision making narrative: UA consistent with UTI. Start Macrobid, culture sent. Reassuring physical exam. Discharge instructions reviewed with patient, as well as provided in writing per nursing staff. The instructions also include specific and strict return/GO TO THE ER as well as f/u information. All questions have been answered, and the patient deny any further questions with discharge and discharge plan Discharge instructions reviewed with patient, as well as provided in writing per nursing staff. The instructions also include specific and strict return/GO TO THE ER as well as f/u information. All questions have been answered, and the patient deny any further questions with discharge and discharge plan. Differential Diagnosis Differential diagnosis: Likely urinary tract infection and cystitis Medical Records Attestation: I reviewed the patient's medical records. Lab Data Attestation: I reviewed the patient's lab results. Labs: Lab Results 11/21/24 Range/Units 10:07 POC Urine Color Aura POC Urine Clarity Purulent POC Urine pH 7.5 POC Ur Specif [place] 1.025 POC Urine Protein 2+ (Negative) POC Ur Glucose (UA) Trace (Negative) POC Urine Ketones Negative (Negative) POC Urine Blood 3+ (Negative) POC Urine Nitrite Positive (Negative) POC Urine Bilirubin 1+ (Negative) POC Urine Urobilinogen 0.2 POC U Leukocyte Esteras Negative (Negative) Discharge Plan Discharge Clinical Impression: Urinary tract infection Patient Disposition: Home, Self-Care Condition: Stable Instructions: Antibiotic Form, Urinary Tract Infection in Women (ED) Additional Instructions: Take medications as prescribed. Follow with primary care provider. Emergency department for new or worse symptoms. Patient Language: Serbian Prescriptions: New nitrofurantoin monohyd/m-cryst [Macrobid] 100 mg capsule 100 mg PO Q12H 5 Days Qty: 10 0RF Rx Instructions: must administer with a meal/food phenazopyridine [Pyridium] 200 mg tablet 200 mg PO TID PRN (Reason: pain) Qty: 6 0RF No Action ergocalciferol (vitamin D2) 1,250 mcg (50,000 unit) capsule 1,250 mcg PO WEEKLY clonazepam 0.5 mg tablet 0.5 mg PO DAILY tramadol 50 mg tablet See Rx Instructions .ROUTE .COMPLEX Rx Instructions: Rx gabapentin 100 mg capsule 100 mg PO DAILY budesonide-formoterol [Symbicort] 160-4.5 mcg/actuation HFA aerosol inhaler See Rx Instructions .ROUTE .COMPLEX Rx Instructions: Rx cetirizine 10 mg tablet ondansetron 4 mg tablet,disintegrating Follow-up/Referrals: Armando,Vicky Kenny MD [Primary Care Provider] - 2 Weeks (uti) Time of Disposition: 10:13
== END 2024-11-21 10:20 | disposition home or self-care (01) ==
PROVIDERS: Emergency Provider Nurse Practitioner Family; PCP Internal Medicine Gastroenterology
DX: N39.0 Urinary tract infection, site not specified (principal); B96.20 Unspecified Escherichia coli [E. coli] as the cause of diseases classified elsewhere; M16.0 Bilateral primary osteoarthritis of hip; M81.0 Age-related osteoporosis without current pathological fracture; F41.9 Anxiety disorder, unspecified; Z86.2 Personal history of diseases of the blood and blood-forming organs and certain disorders involving the immune mechanism; Z96.643 Presence of artificial hip joint, bilateral
CPT/HCPCS: 81003; 87086; 87186; 99213; G0463

== ENCOUNTER 2024-12-17 15:24 | Emergency (ER) | payer OTHER, SELFPAY ==
--- NOTE | 2024-12-17 15:26 | ED_ITS ---
HPI - URI/Sore Throat General Chief Complaint: Upper Respiratory Infection Stated Complaint: cough,diarrhea Time Seen by Provider: 12/17/24 15:26 Source: patient, RN notes reviewed and old records reviewed Mode of arrival: ambulatory Limitations: no limitations History of Present Illness HPI Narrative: Patient presents with complaints of cough and loose stools that began yesterday. She is concerned because she is having company next week and wants to make sure that she does not have the flu or COVID. She does not appear to be in any distress. She took an unknown medication yesterday. States it was ?from last time?. Related Data Home Medications ?Medication ?Instructions ?Recorded ?Confirmed ?Last Taken ?Type budesonide-formoterol HFA 160 See Rx Instructions .Route .COMPLEX 10/03/23 12/17/24 Unknown History mcg-4.5 mcg/actuation aerosol inhaler (Symbicort) clonazepam 0.5 mg tablet 0.5 mg PO DAILY 10/03/23 12/17/24 Unknown History gabapentin 100 mg capsule 100 mg PO DAILY 10/03/23 12/17/24 Unknown History tramadol 50 mg tablet See Rx Instructions .Route .COMPLEX 10/03/23 12/17/24 Unknown History ergocalciferol (vitamin D2) 1,250 1,250 mcg PO WEEKLY 11/04/24 12/17/24 Unknown History mcg (50,000 unit) capsule cetirizine 10 mg tablet 10 mg PO DAILY 11/21/24 12/17/24 Unknown History ondansetron 4 mg disintegrating 4 mg PO Q8H PRN nausea and vomiting 11/21/24 12/17/24 Unknown History tablet Allergies Allergy/AdvReac Type Severity Reaction Status Date / Time ether Allergy Unknown Unknown Verified 12/17/24 15:26 Review of Systems Review of Systems: All systems reviewed & are unremarkable except as noted in HPI and below Constitutional: Constitutional: Reports no additional constitutional complaints ENT: Reports system reviewed and no additional complaints, except as documented Cardiovascular: Cardiovascular: Reports no additional cardiovascular complaints Respiratory: Respiratory: Reports no additional respiratory complaints and Reports cough Gastrointestinal: Gastrointestinal: Reports no additional gastrointestinal complaints and Reports loose stools PMFSH Past Medical History Medical History (Updated 12/17/24 @ 16:27 by Meme Roman, DIRECTOR CORPORATE) Cataract Anxiety Arthritis of both hips Osteoporosis H/O blood clots BMI 34.0-34.9,adult Surgical History Surgical History History of bilateral hip replacements History of esophageal surgery 1977 Family History Family History Mother Unknown family medical history Unknown Neuropathy Arthritis Social History Social History Smoking status: Never smoker Alcohol intake: never Substance use: current Substance use type: marijuana Last use: Marijuana for pain occasional use Living arrangements: with family 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 There is no relevant family history pertinent to the patient complaint. Exam Const: General: cooperative, no acute distress, alert and awake Orientation/consciousness: oriented to person, oriented to place and oriented to time HENMT: Head: normal to inspection Resp: Effort & Inspection: normal respiratory effort and able to speak in complete sentences Auscultation: clear to auscultation bilaterally, no crackles, no rales, no rhonchi and no wheezes Cardio: Palpation: normal PMI Rate: regular rate Rhythm: regular rhythm Heart sounds: S1 normal heart sound present and S2 normal heart sound present GI: Auscultation: normal bowel sounds Neuro: General: oriented to person, oriented to place and oriented to time Cranial nerves: Yes CN's II-XII intact bilaterally Psych: Appearance: grossly normal Thought process: Normal thought process present Insight: Good insight present (Psych) Judgement: Good judgement present (Psych) Course Course Emergency Course: Negative COVID, negative flu. Patient not in any obvious distress. Supportive care measures discussed. Discharge instructions reviewed with patient, as well as provided in writing per nursing staff. The instructions also include specific and strict return/GO TO THE ER as well as f/u information. All questions have been answered, and the patient deny any further questions with discharge and discharge plan. Some parts of this dictation were generated by voice recognition software and may contain typographical and/or grammatical inaccuracies. Level of Care: Express Care Visit Vital Signs Vital signs: Reviewed Discharge Plan Discharge Clinical Impression: Upper respiratory infection Qualifiers: URI type: unspecified viral URI Qualified Code(s): J06.9 - Acute upper respiratory infection, unspecified Patient Disposition: Home, Self-Care Condition: Stable Instructions: Antibiotic Form Additional Instructions: Take medications as prescribed. Follow-up with primary care provider. Emergency department for new or worse symptoms. Plenty of rest and fluids Patient Language: Mauritian Prescriptions: New benzonatate 200 mg capsule 200 mg PO TID PRN (Reason: cough) Qty: 30 0RF No Action ergocalciferol (vitamin D2) 1,250 mcg (50,000 unit) capsule 1,250 mcg PO WEEKLY clonazepam 0.5 mg tablet 0.5 mg PO DAILY tramadol 50 mg tablet See Rx Instructions .ROUTE .COMPLEX Rx Instructions: Rx gabapentin 100 mg capsule 100 mg PO DAILY budesonide-formoterol [Symbicort] 160-4.5 mcg/actuation HFA aerosol inhaler See Rx Instructions .ROUTE .COMPLEX Rx Instructions: Rx cetirizine 10 mg tablet 10 mg PO DAILY ondansetron 4 mg tablet,disintegrating 4 mg PO Q8H PRN (Reason: nausea and vomiting) Follow-up/Referrals: Mauricio,Vicky Kenny MD [Primary Care Provider] - 1 Week Time of Disposition: 16:28
[2024-12-17 15:34] VITALS: BP 119/60; PULSE 82; RESP 16; TEMP 36.4; O2SAT 99
[2024-12-17 16:27] LABS: EDCOVIDSCREEN Negative (Negative); EDINFLUASCREEN Negative (Negative); EDINFLUBSCREEN Negative (Negative)
== END 2024-12-17 16:37 | disposition home or self-care (01) ==
PROVIDERS: Emergency Provider Nurse Practitioner Family; PCP Internal Medicine Gastroenterology
DX: J06.9 Acute upper respiratory infection, unspecified (principal); Z79.899 Other long term (current) drug therapy; Z79.891 Long term (current) use of opiate analgesic; Z20.822 Contact with and (suspected) exposure to COVID-19
CPT/HCPCS: 87426; 87804; 99213; G0463

== ENCOUNTER 2025-02-16 15:10 | Emergency (ER) | payer OTHER, SELFPAY ==
[2025-02-16 15:16] VITALS: BP 155/58; PULSE 85; RESP 14; TEMP 36.7; O2SAT 100
--- NOTE | 2025-02-16 15:24 | ED_ITS ---
HPI - Skin/Abscess/Foreign Bdy General Chief complaint: Skin/Abscess/Foreign Body Stated complaint: Skin/Abscess/Foreign Body Time Seen by Provider: 02/16/25 15:26 Source: patient, RN notes reviewed and old records reviewed Mode of arrival: ambulatory Limitations: no limitations History of Present Illness HPI narrative: 74-year-old female presents to the [facility] with complaints of an itchy rash to the right cheek, neck and abdomen. States that she was doing yd work 3 days ago and developed a rash that night. Has been applying calamine lotion No other treatment prior to arrival Related Data Home Medications ?Medication ?Instructions ?Recorded ?Confirmed ?Last Taken ?Type clonazepam 0.5 mg tablet 0.5 mg PO DAILY 10/03/23 02/16/25 Unknown History tramadol 50 mg tablet See Rx Instructions .Route .COMPLEX 10/03/23 02/16/25 Unknown History Allergies Allergy/AdvReac Type Severity Reaction Status Date / Time ether Allergy Unknown Unknown Verified 02/16/25 15:29 Review of Systems Review of Systems: All systems reviewed & are unremarkable except as noted in HPI and below Constitutional: Constitutional: Reports no additional constitutional complaints ENT: Reports system reviewed and no additional complaints, except as documented Cardiovascular: Cardiovascular: Reports no additional cardiovascular complaints, Denies chest pain and Denies dyspnea Respiratory: Respiratory: Reports no additional respiratory complaints, Denies chest congestion, Denies cough and Denies dyspnea Musculoskeletal: Musculoskeletal: Reports no additional musculoskeletal complaints Integumentary/Breasts: Skin/Breast: Reports as per HPI and Reports rash PMFSH Past Medical History Medical History Cataract Anxiety Arthritis of both hips Osteoporosis H/O blood clots BMI 34.0-34.9,adult Surgical History Surgical History History of bilateral hip replacements History of esophageal surgery 1978 Family History Family History Mother Unknown family medical history Unknown Neuropathy Arthritis Social History Social History Smoking status: Never smoker Alcohol intake: never Substance use: current Substance use type: marijuana Last use: Marijuana for pain occasional use Living arrangements: with family Occupation/Education: occupation 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 There is no relevant family history pertinent to the patient complaint. Exam Const: General: cooperative, no acute distress, well developed, alert, uncomfortable and well nourished Nutritional Appearance: well nourished Orientation/consciousness: patient oriented x3 Limitations: no limitations HENMT: Head: normal to inspection Mouth: Yes Normal oral and palatal mucosa present, Yes lip normal, Yes tongue normal and Yes moist mucous membranes Eyes: General: appearance normal, both eyes and all related structures Alignment and Position: alignment normal Neck: Neck: normal visual inspection, full ROM, no lymphadenopathy and no meningeal signs Chest: Chest palpation & inspection: normal inspection of the chest Resp: Effort & Inspection: normal respiratory effort and able to speak in complete sentences Auscultation: clear to auscultation bilaterally, no crackles, no rales, no rhonchi and no wheezes Cardio: Rate: regular rate Skin: General skin exam: normal color and no rashes or lesions noted Other: Red raise rash, patient describes as itchy to the abdomen, right side of neck and right cheek. Caked on calamine lotion is noted. Neuro: General: patient oriented x3, gait normal, moves all extremities and no meningeal signs Cognition (Neuro): normal cognition Speech: normal speech Gait exam (Neuro): Normal gait present Extrem: General: normal to inspection, full ROM, capillary refill normal and normal gait Psych: Appearance: grossly normal and well kempt Mental Status: mental status grossly normal Speech and movement: Normal speech and movement present and Clear speech present Affect: normal affect Attitude: cooperative Course Course Level of Care: Express Care Visit Vital Signs Vital signs: Vital Signs Temperature 98.1 F 02/16/25 15:16 Pulse Rate 85 02/16/25 15:16 Respiratory Rate 14 02/16/25 15:16 Blood Pressure 155/58 H 02/16/25 15:16 Pulse Oximetry 100 02/16/25 15:16 Oxygen Delivery Room Air 02/16/25 15:16 Temperature 98.1 F 02/16/25 15:16 Pulse Rate 85 02/16/25 15:16 Respiratory Rate 14 02/16/25 15:16 Blood Pressure 155/58 H 02/16/25 15:16 Pulse Oximetry 100 02/16/25 15:16 Oxygen Delivery Room Air 02/16/25 15:16 Reviewed MDM - Skin/Abscess/Foreign Bdy MDM Narrative Medical decision making narrative: Patient sitting comfortably in exam. Patient is nontoxic, vitals are stable. Patient presents with 3 day history of a rash. Rash appears to be contact dermatitis due to plants from clearing weeds. Patient appropriate for outpatient treatment and follow-up Discharge instructions reviewed with patient, as well as provided in writing per nursing staff. The instructions also include specific and strict return/GO TO THE ER as well as f/u information. All questions have been answered, and the patient deny any further questions with discharge and discharge plan. Some parts of this dictation were generated by voice recognition software and may contain typographical and/or grammatical inaccuracies. Differential Diagnosis Differential diagnosis: Likely abscess of skin or subcutaneous tissue, viral exanthem, allergic reaction to drug, cellulitis, eczema, insect bites, impetigo and contact dermatitis Critical Care Time Critical Care Time Critical Care Time: No Discharge Plan Discharge Clinical Impression: Dermatitis, Urticaria Patient Disposition: Home Condition: Stable Instructions: Antibiotic Form, Urticaria (ED), Dermatitis (ED) Additional Instructions: The most important part of your care is follow up with Primary care provider. Take Benadryl 25-50 mg every 8 hours for itching Take Zyrtec every day Take Pepcid 20mg daily for 7 days Take the steroids starting today and then take every morning. Avoid hot showers, Take cool showers. Hot showers will make rashes worse Apply cool compresses every 2-3 hours for 15 minutes Go to the ER for new or worsening symptoms such as shortness of breath. 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
== END 2025-02-16 15:37 | disposition home or self-care (01) ==
PROVIDERS: Emergency Provider Nurse Practitioner
DX: L30.9 Dermatitis, unspecified (principal); L50.9 Urticaria, unspecified; F12.90 Cannabis use, unspecified, uncomplicated; M81.0 Age-related osteoporosis without current pathological fracture; M16.0 Bilateral primary osteoarthritis of hip; F41.9 Anxiety disorder, unspecified; Z86.2 Personal history of diseases of the blood and blood-forming organs and certain disorders involving the immune mechanism
CPT/HCPCS: 99213; G0463

== ENCOUNTER 2025-07-12 14:09 | Outpatient (CLI) | payer OTHER, SELFPAY ==
--- OUTSIDE RECORDS SUMMARY | 2003-12-29 05:30 | XMS_ITS | Continuity of Care Document ---
Author Organization [facility] Address [address] [place] [address] [address] [place] [address] Phone Care Team Providers Care Engagement Quality Consultant Name Role Phone Doisy, Edward Unavailable Unavailable Advance Directives Directive Yes / No Effective Date File Name No Information Encounters Encounter Description Practice Location Reason(s) For Visit Diagnoses Date Provider Providers Copied on Encounter [facility], [address] [place], [place], [id number], [place] tel:[phone] [facility] [place] No Information Apr-0 2-200 4 Doisy Edward. [address] [place] , [address], [place], [address], [place]. tel:[phone] Family History Family Member Type Diagnosis Age At Onset No Information Payers Payer name Insurance type Covered republican ID Authoriza tion(s) Medicaid [facility] [id number] Social History Type Description Quantity Date Captured Comments Sex Female Smoking Status No Information Chief Complaint And Reason For Visit No Information Reason For Referral Reason For Referral No Information History Of Present Illness Encounter Date Complaint History Of Prese nt Illness No Information Functional Status Date Functional Assessmen t No Information Instructions Date Instruction Additional Infor mation No Information Assessments Type Assessment Date No Information Patient Care Teams Name Effective Dates (start - stop) Status Members No Information
--- OUTSIDE RECORDS SUMMARY | 2025-07-12 16:31 | XMS_ITS | Clinical Summary ---
Author Organization [facility] Address [address] [place] [address] Care Team Providers Care Paramedical Aide Name Role Phone Abner Smith Primary Care Provider + Allergies Active Allergy Reactions Criticality Noted Date Comments Ether For Anesthesia Mental status changes Low 05/15/2021 Violent at age of [age] years old Gabapentin Other (See comments) Low 05/15/2021 feel horrible Methocarbamol Angioedema High 09/18/2016 Metronidazole Nausea only Medium 09/18/2016 Sulfamethoxazole-Trimeth oprim Flushing (skin) Medium 05/15/2021 Medications loratadine (CLARITIN) 10 mg tabletIndicatio ns:Allergic Conjunctivitis, Allergic Rhinitis Take 10 mg by mouth every morning 0 Active fluticasone propionate (FLONASE) 50 mcg/actuation nasal sprayIndication s:Allergic Rhinitis Administer 1 spray into each nostril as needed for allergies 0 Active clonazePAM (KlonoPIN) 0.5 mg tabletIndicatio ns:anxiety Take 0.5 mg by mouth 2 (two) times a day as needed for anxiety 9 Active budesonide-form oteroL (SYMBICORT) 160-4.5 mcg/actuation inhalerIndicati ons:Acute Asthma Attack,Maintena nce Therapy for Asthma Inhale 2 puffs 2 (two) times a day as needed Active albuterol HFA (PROVENTIL HFA,VENTOLIN HFA,PROAIR HFA) 90 mcg/actuation inhalerIndicati ons:Acute Asthma Attack Inhale 2 puffs every 8 (eight) hours as needed Active cholecalciferol , vitamin D3, (VITAMIN D3 ORAL)Indication s:supplement Take 1 tablet by mouth every morning Active gabapentin (NEURONTIN) 100 mg capsule Take 100 mg by mouth 3 (three) times a day Active amoxicillin (AMOXIL) 500 mg tablet/capsuleI ndications:Prop hylaxis, Medical Take 500 mg by mouth 3 (three) times a day Active senna-docusate (PERICOLACE) 8.6-50 mgIndications:c onstipation Take 2 tablets by mouth 2 (two) times a day 80 tablet 2 Active aspirin 81 mg enteric coated tabletIndicatio ns:prevention of thrombosis Take 1 tablet (81 mg total) by mouth 2 (two) times a day 60 tablet 2 Active meloxicam (MOBIC) 7.5 mg tabletIndicatio ns:Osteoarthrit is Take 1 tablet (7.5 mg total) by mouth 2 (two) times a day with meals 60 tablet 2 Active traMADoL (Ultram) 50 mg tablet Take 1 tablet (50 mg total) by mouth every 6 (six) hours as needed for pain 42 tablet 2 Active Active Problems Problem Noted Date Diagnosed Date Fatigue 01/20/2022 Trigger thumb of left hand 01/20/2022 Primary osteoarthritis of right hip 12/03/2021 Risk factors for obstructive sleep apnea 022 Low back pain 08/19/2021 Abnormal gait 07/12/2021 Gastroesophageal reflux disease 07/11/2021 At risk for venous thromboembolism (VTE) 021 Overview (07/12/2021): Problem added by Discern Expert Rule: EBN_VTERISKPROB_3 Anxiety 05/15/2021 Ankle pain 05/15/2021 Chest pain, unspecified 05/15/2021 Chronic constipation 05/15/2021 Elevated hemoglobin A1c 05/15/2021 Essential hypertension 05/15/2021 Headache 05/15/2021 Injury of hip and thigh 05/15/2021 Obesity 05/15/2021 Osteoarthritis 05/15/2021 Otitis media 05/15/2021 Plantar fasciitis 05/15/2021 Vitamin D deficiency 05/15/2021 Avascular necrosis 05/15/2021 Overview (05/15/2021): Added automatically from request for surgery [id number] Osteopenia 09/28/2020 Joint stiffness 07/11/2020 Spasm 05/09/2020 Avascular necrosis of femoral head 05/08/2020 Swelling of lower extremity 03/14/2020 Edema of foot 03/01/2020 Depressive disorder 11/28/2019 Edema 10/03/2019 Asthma 09/02/2019 Allergic rhinitis 07/21/2019 Influenza 06/21/2019 Dysuria 02/03/2019 Herpes zoster 02/15/2018 Insomnia 09/01/2017 Migraine 09/01/2017 Chronic sciatica 05/22/2017 Contact dermatitis 10/21/2016 Acute urinary tract infection 09/22/2016 Bacterial vaginosis 09/18/2016 Sinusitis 01/24/2013 Hyperlipidemia 09/28/1959 Immunizations Immunization Administration Dates Next Due Pfizer SARS-CoV-2 Monovalent Vaccination (12+ Yrs) PURPLE 01/22/2021,01/22/2021,12/25/2020,2020 Surgical History Surgery Date Site/Laterality Comments ESOPHAGUS SURGERY 09/28/1977 - 09/27/1978 dilatate esophagus VARICOSE VEIN SURGERY Left COLONOSCOPY ESOPHAGEAL DILATION 09/28/2011 - 09/27/2012 FLUORO GUIDED ASPIRATION OR INJECTION LARGE JOINT RIGHT 08/08/2021 Right HIP ARTHROPLASTY Left Medical History Medical History Date Comments Osteoarthritis Obesity Asthma Hypercholesteremia Hypertension patient denies Anxiety Depression Migraines Osteopenia Low back pain HLD (hyperlipidemia) History of esophageal stricture Lumbar spinal stenosis DDD (degenerative disc disease), lumbar Bulging lumbar disc Avascular necrosis (HCC) Family History Medical History Relation Name Comments Arthritis Daughter Asthma Son 1 Anesthesia problems Neg Hx Relation Name Status Comments Daughter Alive Mother Son 1 Alive Son 2 Alive Social History Tobacco Use Types Packs/Day Years Used Date Smoking Tobacco: Never Smokeless Tobacco: Never AUDIT-C Answer Date Recorded Q1: How often do you have a drink containing alc ohol? Never 12/02/2021 Q2: How many drinks containi ng alcohol do you have on a typical day when you are drinking? 1 or 2 12/02/2021 Q3: How often do you have six or more drinks on one occasion? Never 12/02/2021 Comments No Sex and Gender Information Value Date Recorded Sex Assigned at Not on file Legal Sex Female 10:10 AM [employer] Gender Identity Not on file Sexual Orientation Not on file Occupation Industry Job Start Date Job End Date Disabled Not on file Not on file Not on file Obstetrics History Last Filed Vital Signs Vital Sign Reading Time Taken Comments Blood Pressure 120/62 12/05/2021 8:00 AM [employer] Pulse 71 12/05/2021 8:00 AM [employer] Temperature 36.9 C (98.4 F) 12/05/2021 8:00 AM [employer] Respiratory Rate 20 12/05/2021 8:00 AM [employer] Oxygen Saturation 97% 12/05/2021 8:00 AM [employer] Inhaled Oxygen Concentration - - Weight 86.6 kg (191 lb) 12/02/2021 11:12 AM [employer] Height 167 cm (5' 5.75) 12/02/2021 11:12 AM [employer] Body Mass Index 31.06 12/02/2021 11:12 AM [employer] Plan of Treatment Health Maintenance Due Date Last Done Comments Colon Cancer Screening-Colonoscopy 1950 Depression Screening 1950 Hepatitis C Screening 1950 Osteoporosis Screening-Bone Density Scan 1950 DTaP/Tdap/Td Vaccine (1 - Tdap) 1961 Hepatitis B Screening 1968 Pneumococcal vaccine 65+ (1 of 2 - PCV) 1969 Zoster Vaccine (1 of 2) 2000 Well Visit 65+ 2015 Fall Risk Assessment 12/05/2022 12/05/2021 Covid-19 Vaccine (2024-2 6 season) 2025 10/05/2021, 01/22/2021, 01/22/2021, Additional history exists Influenza Vaccine (#1) 2025 Medical Devices Implanted Type Area Cook Chili Device Identifier Shelf Expiration Date Model / Serial / Lot [employer] [id number] [place] 50mm Sector Hip Shell Acetabular Gription Sterile Latex Free - Sna - [id number] Implanted:Qty: 1 on 05/20/2021 by Rosa M Major MD at [facility] Other - see comments Left: Hip [employer] [id number] 03/27/2031 [id number] / NA / [id number] Description:Implant pause pe rformed [employer] [id number] [place] 50mm 32mm Hip Neutral Liner Acetabular Altrx Sterile Latex Free - Sna - [id number] Implanted:Qty: 1 on 05/20/2021 by Rosa M Major MD at [facility] Other - see comments Left: Hip [employer] [id number] 12/26/2025 [id number] / NA / [id number] Description:Implant pause pe rformed [employer] [id number] Actis L111 Mm Collar Hip 8 High Offset Stem Femoral - Sna - [id number] Implanted:Qty: 1 on 05/20/2021 by Rosa M Major MD at [facility] Other - see comments Left: Hip [employer] [id number] 03/27/2031 [id number] / NA / [id number] Description:Implant pause pe rformed [employer] [id number] Articul/Jabier 32mm Hip +9mm 12/14 Taper Head Femoral Biolox Delta Latex Free - Sna - [id number] Implanted:Qty: 1 on 05/20/2021 by Rosa M Major MD at [facility] Other - see comments Left: Hip [employer] [id number] 05/28/2023 [id number] / NA / [id number] Description:Implant pause pe rformed [employer] [id number] [place] 52mm Sector Hip Shell Acetabular Gription Sterile Latex Free - Sna - [id number] Implanted:Qty: 1 on 12/02/2021 by Rosa M Major MD at [facility] Other - see comments Right: Hip [employer] 10/28/2031 [id number] / NA / [id number] Description:Implant pause pe rformed [employer] [id number] [place] 52mm 36mm Hip Neutral Liner Acetabular Altrx Sterile Latex Free - Sna - [id number] Implanted:Qty: 1 on 12/02/2021 by Rosa M Major MD at [facility] Other - see comments Right: Hip [employer] [id number] 09/27/2026 [id number] / NA / [id number] Description:Implant pause pe rformed [employer] [id number] Actis L111 Mm Collar Hip 8 High Offset Stem Femoral - Sna - [id number] Implanted:Qty: 1 on 12/02/2021 by Rosa M Major MD at [facility] Other - see comments Right: Hip [employer] [id number] 09/27/2031 [id number] / NA / [id number] Description:Implant pause pe rformed [employer] [id number] Articul/[place]abier 36mm Cementless Hip +1.5mm 12/14 T[place] Head Femoral Latex Free - Sna - [id number] Implanted:Qty: 1 on 12/02/2021 by Rosa M Major MD at [facility] Other - see comments Right: Hip [employer] [id number] 05/28/2026 [id number] / NA / [id number] Description:Implant pause pe rformed [employer] 1217-30-500 [place] 6.5mm 30mm Acetabular Cancellous Screw Bone Revision - Sna - [id number] Implanted:Qty: 1 on 05/20/2021 by Rosa M Major MD at [facility] Screw Left: Hip [employer] [id number] 02/25/2031 1217-30-500 / NA / [id number] Description:Implant pause pe rformed [employer] [id number] [place] 6.5mm 40mm Acetabular Cancellous Screw Bone Sterile - Sna - [id number] Implanted:Qty: 1 on 05/20/2021 by Rosa M Major MD at [facility] Screw Left: Hip [employer] 03/27/2031 [id number] / NA / [id number] Description:Implant pause pe rformed [employer] 1217-25-500 [place] 6.5mm 25mm Acetabular Cancellous Screw Bone Sterile - Sna - [id number] Implanted:Qty: 1 on 12/02/2021 by Rosa M Major MD at [facility] Screw Right: Hip [employer] [id number] 09/27/2031 1217-25-500 / NA / [id number] Description:Implant pause pe rformed [employer] [id number] [place] 6.5mm 40mm Acetabular Cancellous Screw Bone Sterile - Sna - [id number] Implanted:Qty: 1 on 12/02/2021 by Rosa M Major MD at [facility] Screw Right: Hip [employer] 07/28/2031 [id number] / NA / [id number] Description:Implant pause pe rformed Insurance [facility] Advance Directives For more information, please contact: [phone] * Full Code (Latest Code Status on File) Date Activated Date Inactivated Comments 12/02/2021 5:04 PM 12/05/2021 6:24 PM * Full Code Date Activated Date Inactivated Comments 05/20/2021 4:15 PM 05/23/2021 10:31 PM Care Teams Paramedical Aide Relationship Specialty Start Date End Date Abner Smith PA [address] [place] [id number] PCP - General Internal Medicine 02/20/21
[2025-07-12 18:25] LABS: Hematocrit 43.2 % (37.0-47.0); Hemoglobin 14.0 g/dL (12.0-15.0); Immature Granulocyte Percent A 0.3 % (0-0.5); Lymphocytes Absolute Auto 1.71 K/mm3 (0.9-3.2); Mean Corpuscular HGB Conc 32.4 g/dl (32-36); Mean Corpuscular Hemoglobin 32.4 pg (26-34); Mean Corpuscular Volume 100.0 fl (80-100); Nucleated Red Blood Cells Absolute Auto 0.000 K/mm3 (0.0-0.012); Nucleated Red Blood Cells Perc 0.0 % (0.0-0.2); Platelet Count Result 227 k/mm3 (150-375); Red Blood Count 4.32 M/mm3 (4.2-5.4); White Blood Count 6.7 K/mm3 (4.5-10.0)
[2025-07-12 18:40] LABS: Alanine Aminotransferase 15 U/L (6-35); Albumin Level 4.3 g/dL (3.5-5.1); Alkaline Phosphatase 83 U/L (38-126); Anion Gap 6 mmol/L (4-12); Aspartate Amino Transferase 41 U/L (14-36); Bilirubin,Total 0.7 mg/dL (0.2-1.3); Blood Urea Nitrogen 20 mg/dL (7-17); Calcium 8.9 mg/dL (8.4-10.2); Carbon Dioxide 27 mmol/L (22-30); Chloride 105 mmol/L (98-107); Cholesterol 199 mg/dL (0-200); Estimated Glomerular Filt Rate > 60; Glucose 92 mg/dL (65-110); HDL Direct 49 mg/dL; Potassium 4.5 mmol/L (3.4-5.0); Sodium 138 mmol/L (137-145); Total Protein 8.0 g/dL (6.3-8.2); Triglycerides 59 mg/dL (<150)
[2025-07-12 18:52] LABS: Hemoglobin A1C 5.3 % (<5.7)
[2025-07-12 19:12] LABS: Free T4 Free Thyroxine 1.40 ng/dL (0.78-2.19)
[2025-07-12 19:16] LABS: Thyroid Stimulating Hormone 2.640 uIU/mL (0.465-4.680)
[2025-07-12 19:18] LABS: HIV 1/2 Ab P24 Ag Result Negative (Negative)
[2025-07-12 19:31] LABS: Ferritin 76.00 ng/mL (11.1-264)
[2025-07-12 19:52] LABS: Vitamin B12 609.0 pg/mL (239-931)
[2025-07-18 00:07] LABS: Summary Report (Summary) FINAL (.)
== END 2025-07-12 14:10 | disposition home or self-care (01) ==
LOC: ANHGOSHLAB 14:10
PROVIDERS: PCP Family Medicine; Visit Provider Family Medicine
DX: E78.5 Hyperlipidemia, unspecified (principal); E55.9 Vitamin D deficiency, unspecified; R53.83 Other fatigue; R73.9 Hyperglycemia, unspecified; D64.9 Anemia, unspecified; R20.2 Paresthesia of skin; Z51.81 Encounter for therapeutic drug level monitoring; Z11.59 Encounter for screening for other viral diseases; Z11.4 Encounter for screening for human immunodeficiency virus [HIV]
CPT/HCPCS: 36415; 80053; 80061; 80307; 82306; 82607; 82728; 82746; 83036; 84439; 84443; 85025; 86703; 86803; G0432